=== PATIENT | male | born 2000 ===

== ENCOUNTER 2022-12-22 22:29 | Emergency (ER) | payer BC ==
[2022-12-22] MEDS ORDERED: Sodium Chloride 0.9% 10 ML Syringe FLUSH PRN (23:08)
[2022-12-22] MEDS ORDERED: Sodium Chloride 0.9% 2.5 ML Syringe FLUSH PRN (23:08)
[2022-12-22] MEDS ORDERED: fentaNYL 50 MCG/ML SDV IVPUSH ONE (23:08)
[2022-12-22 23:17] LABS: APPEARANCE,URINE CLEAR; BILIRUBIN,URINE NEGATIVE (NEGATIVE); COLOR,URINE YELLOW; GLUCOSE,URINE NEGATIVE (NEGATIVE); KETONES,URINE NEGATIVE (NEGATIVE); LEUKOCYTE ESTERASE,URINE NEGATIVE (NEGATIVE); NITRITE,URINE NEGATIVE (NEGATIVE); OCCULT BLOOD,URINE NEGATIVE (NEGATIVE); PROTEIN,URINE NEGATIVE (NEGATIVE); UROBILINOGEN,URINE 0.2 EU/dL (<2.0)
[2022-12-22 23:31] LABS: BASOPHILS PERCENT AUTO 0.2 % (0.0-1.5); EOSINOPHILS ABSOLUTE AUTO 0.1 K/uL (0.0-0.7); EOSINOPHILS PERCENT AUTO 1.1 % (0.0-7.0); HEMATOCRIT 41.6 % (38.0-50.0); HEMOGLOBIN 15.3 g/dL (13.0-17.0); LYMPHOCYTES ABSOLUTE AUTO 1.5 K/uL (0.6-2.4); LYMPHOCYTES PERCENT AUTO 14.5 % (16.0-40.0); MEAN CORPUSCULAR HEMOGLOBIN 30.8 pg (27.0-32.0); MEAN CORPUSCULAR HGB CONC 36.8 g/dL (31.0-37.0); MEAN CORPUSCULAR VOLUME 83.7 fL (80.0-98.0); MONOCYTES ABSOLUTE AUTO 0.8 K/uL (0.0-0.8); MONOCYTES PERCENT AUTO 7.9 % (0.0-15.0); NEUTROPHILS ABSOLUTE AUTO 8.1 K/uL (1.4-5.7); NEUTROPHILS PERCENT AUTO 76.3 % (48.0-80.0); NRBC ABSOLUTE 0 K/uL; PLATELET COUNT,PLT 205 K/uL (150-400); RED BLOOD CELL COUNT 4.97 M/uL (4.50-5.90); WHITE BLOOD CELL COUNT,WBC 10.65 K/uL (4.0-11.0)
[2022-12-22 23:58] LABS: A/G RATIO 1.6 (0.9-1.6); ALANINE AMINOTRANSFERASE,ALT 39 IU/L (14-63); ALBUMIN 4.1 g/dL (3.4-5.0); ALKALINE PHOSPHATASE 60 U/L (46-116); ASPARTATE AMNIOTRANSFERASE,AST 24 IU/L (15-37); BILIRUBIN TOTAL 0.6 mg/dL (0.2-1.0); BLOOD UREA NITROGEN,BUN 11 mg/dL (7.0-18.0); CALCIUM 8.8 mg/dL (8.5-10.1); CHLORIDE,CL 102 mmol/L (98-107); CREATININE 1.1 mg/dL (0.8-1.3); GLUCOSE RANDOM 120 mg/dL (74-106); POTASSIUM,K 3.4 mmol/L (3.5-5.1); PROTEIN TOTAL,TP 6.7 g/dL (6.4-8.2); SODIUM,NA 137 mmol/L (136-148)
[2022-12-23 00:03] LABS: ESTIMATED GFR 99 mL/min (>60)
[2022-12-23 02:09] LABS: C. TRACHOMATIS BY PCR NOT DETECTED; N. GONORRHOEAE BY PCR NOT DETECTED
== END 2022-12-23 01:25 | disposition home or self-care (01) ==
LOC: MW.ED 22:29
DX: I86.1 Scrotal varices (principal); Z88.2 Allergy status to sulfonamides
CPT/HCPCS: 36415; 76870; 80053; 81003; 85025; 87491; 87591; 93976; 96374; 99284; J3010; J3490